=== PATIENT | male | born 1990 | race African-American/Black ===

== ENCOUNTER 2018-11-20 07:49 | Day surgery (SDC) | payer OTHER ==
[~2018-11-20] VITALS: Ht 185.4 cm; Wt 129.3 kg
[2018-11-20 08:49] VITALS: BP 147/92
[2018-11-20 13:51] VITALS: BP 143/81
== END 2018-11-20 11:45 | disposition home or self-care (01) ==
LOC: GI 07:49 → OR 10:00 → GI 11:45
DX: R13.10 Dysphagia, unspecified (principal); K21.9 Gastro-esophageal reflux disease without esophagitis; Z79.899 Other long term (current) drug therapy; Z91.010 Allergy to peanuts; Z91.018 Allergy to other foods
CPT/HCPCS: 43235; J1200; J1610; J2250; J2310; J3010; J3490

== ENCOUNTER 2019-06-10 23:51 | Emergency (ER) | payer OTHER ==
[~2019-06-10] VITALS: Ht 188 cm; Wt 126.3 kg
[2019-06-11 00:07] VITALS: Ht 188 cm; Wt 126.3 kg
[2019-06-11 01:47] LABS: BASOPHIL % 0.4 % (0-2); PLATELET COUNT 238 x10^3mcL (130-400); RED CELL DISTRIBUTION WIDTH 13.2 % (11.5-14.5)
[2019-06-11 01:49] LABS: CALCIUM 8.8 mg/dL (8.5-10.1); CARBON DIOXIDE 29.6 mmol/L (21-32); CHLORIDE SERUM 104 mmol/L (98-107); GFR1 > 60 mL/min; GLUCOSE SERUM 106 mg/dL (74-106); POTASSIUM SERUM 3.7 mmol/L (3.5-5.1); SODIUM SERUM 139 mmol/L (136-145)
[2019-06-11 01:53] LABS: ALBUMIN 3.5 g/dL (3.4-5.0); ALKALINE PHOSPHATASE 76 U/L (46-116); ALT/SGPT 44 U/L (16-63); AMYLASE 39 U/L (25-115); AST/SGOT 12 U/L (15-37); BILIRUBIN TOTAL 0.22 mg/dL (0.20-1.00); LIPASE 120 IU/L (73-393); TOTAL PROTEIN, SERUM 7.3 g/dL (6.4-8.2)
[2019-06-11 02:59] VITALS: BP 128/70
== END 2019-06-11 02:59 | disposition home or self-care (01) ==
LOC: ED 23:51
PROVIDERS: Emergency Medicine
DX: R10.13 Epigastric pain (principal); R10.11 Right upper quadrant pain; J45.909 Unspecified asthma, uncomplicated; K21.9 Gastro-esophageal reflux disease without esophagitis
CPT/HCPCS: J2405; Q0092